=== PATIENT | female | born 1960 | race Caucasian/White ===

== ENCOUNTER 2024-01-18 06:29 | Observation (INO) | payer OTHER ==
[2024-01-09 14:49] LABS: BASOPHILS # (AUTO) 0.1 X10'3 (0-0.2); BASOPHILS % (AUTO) 0.8 % (0-1); EOSINOPHILS # (AUTO) 0.1 X10'3 (0-0.9); EOSINOPHILS % (AUTO) 1.4 % (0-6); LYMPHOCYTES # (AUTO) 2.3 X10'3 (1.1-4.8); LYMPHOCYTES % (AUTO) 31.8 % (21-51); MEAN CORPUSCULAR HEMOGLOBIN 30.2 PG (27.0-31.0); MEAN CORPUSCULAR HGB CONC 33.2 g/dL (33.0-36.5); MEAN CORPUSCULAR VOLUME 90.9 FL (78-98); MEAN PLATELET VOLUME 7.4 FL (7.4-10.4); MONOCYTES # (AUTO) 0.7 X10'3 (0-0.9); NEUTROPHILS # (AUTO) 4.1 X10'3 (1.8-7.7); PRE OP PLATELET COUNT 323 X10'3 (140-440); PRE OP WHITE BLOOD COUNT 7.2 10'3 (4.8-10.8); RED BLOOD COUNT 4.62 X10'6 (4.20-5.60); RED CELL DISTRIBUTION WIDTH 13.6 % (11.5-14.5)
[2024-01-09 14:50] LABS: BILIRUBIN,URINE NEGATIVE (Neg); CLARITY,URINE SLIGHTLY CLOUDY (Clear); COLOR,URINE YELLOW (Yellow); GLUCOSE, URINE NEGATIVE (Neg); KETONES,URINE TRACE mg/dl (Neg); LEUKOCYTE ESTERASE ,URINE TRACE (Neg); NITRITES, URINE NEGATIVE (Neg); OCCULT BLOOD,URINE NEGATIVE (Neg); PH,URINE 5.5 (4.8-8.0); PROTEIN,URINE NEGATIVE (Neg); UROBILINOGEN,URINE 0.2 E.U/dL (0.2-1.0)
[2024-01-09 14:54] LABS: UA COLLECTION TYPE CLN CATCH MIDSTREAM
[2024-01-09 15:02] LABS: ALBUMIN 4.3 G/DL (3.4-5.0); ALBUMIN/GLOBULIN RATIO 1.2 (1.1-1.5); ALKALINE PHOSPHATASE 89 IU/L (46-116); BLOOD UREA NITROGEN 18 MG/DL (7-18); BUN/CREATININE RATIO 24.3 (10.0-20.0); CALCIUM 9.8 MG/DL (8.5-10.1); CHLORIDE 101 MMOL/L (99-107); CREATININE 0.74 MG/DL (0.40-0.90); PRE OP ALT 57 U/L (30-65); PRE OP ANION GAP 8 (8-16); PRE OP AST 27 U/L (10-37); PRE OP BILIRUB, TOTAL 0.4 MG/DL (0.0-1.0); PRE OP GLUCOSE 96 MG/DL (70-104); PRE OP POTASSIUM 3.8 MMOL/L (3.4-5.1); PRE OP SODIUM 139 MMOL/L (135-145); TOTAL CARBON DIOXIDE 30.5 MMOL/L (24-32); TOTAL PROTEIN 7.9 G/DL (6.4-8.2); eGFR 79 ML/MIN
[2024-01-09 15:04] LABS: HYALINE CASTS 0-3 /LPF (NEGATIVE); MUCUS STRANDS FEW /LPF (Neg); SQUAMOUS EPITHELIAL CELL,UR MANY /LPF (FEW)
[2024-01-09 15:05] LABS: BACTERIA,URINE FEW /HPF (Neg); RBC,URINE 0-2 /HPF (0-2); TRANSITIONAL EPI CELLS,URINE FEW /HPF; WBC,URINE 0-4 /HPF (0-4)
[~2024-01-18] VITALS: Ht 170.2 cm; Wt 65.6 kg
[2024-01-18] VITALS (18 sets, daily range): BP systolic 89–139; BP diastolic 42–75; PULSE 54–80; RESP 10–17; TEMP 97.9–98.6; O2SAT 92–98
[2024-01-18] MEDS: ceFAZolin 2gm in dextrose, iso 50 ML IV ONE (05:30)
[~2024-01-18 06:29] MED LIST: ATOR40TA72 PO; CALCIUM + D3; CHOLECALCIFEROL; COLLAGEN; IBUP-1984 PO; MULT-1085 PO; TURMERIC
[2024-01-18] MEDS ORDERED: bacitracin 15gm ointment TP ONE (06:49)
[2024-01-18] MEDS ORDERED: BUPIVAcaine 2.5mg/ml inj 50ml vial (contains preservative) ONE (06:49)
[2024-01-18] MEDS: ringers solution, lacted 1,000 ML IV SCH ×3 (07:36→22:35)
[2024-01-18] MEDS: famotidine 20mg tablet PO ONE (07:36)
[2024-01-18] MEDS: VANCOMYCIN 1GM 200ML H20 (PEG) 200 ML IV ONE (07:37)
[2024-01-18] MEDS ORDERED: cloNIDine hcl/PF 100mcg/ml inj ONE (09:00)
[2024-01-18] MEDS ORDERED: 0.9 % SODIUM CHLORIDE 10 ML VIAL ONE (09:45)
[2024-01-18] MEDS ORDERED: propofol inj 20 ML IV ONE (09:45)
[2024-01-18] MEDS ORDERED: dexamethasone sod phosphate 4mg/ml inj. ONE (09:45)
[2024-01-18] MEDS ORDERED: LIDOcaine 1%/PF 5ML 10 MG/ML VIAL ONE (09:45)
[2024-01-18] MEDS ORDERED: ondansetron/PF 4mg/2ml inj ONE (09:53)
[2024-01-18] MEDS: midazolam 1 mg/ML 2ml injection IV ONE (10:00)
[2024-01-18] MEDS: fentaNYL /PF 50mcg/ml 5ml ampule IV ONE (10:00)
[2024-01-18] MEDS ORDERED: ondansetron/PF 4mg/2ml inj IV PRN ×2 (10:25→19:05)
[2024-01-18] MEDS ORDERED: morphine 4 MG/ML inj SYRINge IV PRN (10:25)
[2024-01-18] MEDS ORDERED: ROPIVAcaine 0.2% (10 MG/5 ML) BOLUS INJECTION POPLITEAL PRN (10:25)
[2024-01-18] MEDS ORDERED: morphine 2 MG/ML inj. syringe IV PRN (10:25)
[2024-01-18] MEDS ORDERED: proCHLORperazine 10 MG/2 ml inj IV PRN (10:25)
[2024-01-18] MEDS ORDERED: meperidine/PF 25mg/ml syringe IV PRN ×3 (10:25)
[2024-01-18] MEDS ORDERED: labetalol 20mg/4ml (5mg/ml) syringe IV PRN (10:25)
[2024-01-18] MEDS ORDERED: enalaprilat dihydrate 2.5mg/2ml vial IV PRN (10:25)
[2024-01-18] MEDS ORDERED: acetaminophen 1,000mg/100ml IV 100 ML IV ONE (12:12)
[2024-01-18] MEDS: ROPIVAcaine 0.2%/PF PUMP/bolus 545 ML POPLITEAL SCH (12:30)
[2024-01-18] MEDS ORDERED: HYDROcodone/acetaminophen 10/325mg tab PO PRN ×2 (19:05)
[2024-01-19 02:00] VITALS: BP 100/47; PULSE 87; RESP 16; TEMP 98.7; O2SAT 98
[2024-01-19 06:00] VITALS: BP 110/69; PULSE 68; RESP 15; TEMP 97.9; O2SAT 99
[2024-01-19 10:00] VITALS: BP 119/56; PULSE 70; RESP 18; TEMP 97.9; O2SAT 100
== END 2024-01-19 12:30 | disposition home or self-care (01) ==
LOC: PAS 06:29 → PAS IN 12:09 → ORTHO 4S 13:20
PROVIDERS: ADMIT Podiatrist Foot & Ankle Surgery; ATTEND Podiatrist Foot & Ankle Surgery
DX: M19.071 Primary osteoarthritis, right ankle and foot (principal); M25.371 Other instability, right ankle; M21.961 Unspecified acquired deformity of right lower leg; E78.5 Hyperlipidemia, unspecified; Z79.899 Other long term (current) drug therapy; Z87.442 Personal history of urinary calculi
CPT/HCPCS: 27687; 27702; 36415; 73600; 80053; 81001; 82948; 85025; 87081; A6223; C1713; C1776; G0378; J0131; J0690; J0735; J1100; J2405; J2704; J2795; J3372; J3490; J7120; 76000; A4615; A4618; A6253; A6449; A7000